=== PATIENT | female | born 2000 | race Caucasian/White ===

== ENCOUNTER 2020-09-13 09:20 | Emergency (ER) | payer BC ==
[~2020-09-13] VITALS: Ht 149.9 cm; Wt 52.2 kg
[2020-09-13 09:20] VITALS: BP 119/72
[2020-09-13] MEDS ORDERED: ERYTHROMYCIN E3.5 G2 OPHTHALMIC (10:03)
[2020-09-13] MEDS ORDERED: POLYMYXIN B/TMP10 ML OPHTHALMIC (10:03)
== END 2020-09-13 10:10 | disposition home or self-care (01) ==
LOC: ER 09:20
DX: S05.02XA Injury of conjunctiva and corneal abrasion without foreign body, left eye, initial encounter (principal); Y29.XXXA Contact with blunt object, undetermined intent, initial encounter; Y93.89 Activity, other specified; Y92.69 Other specified industrial and construction area as the place of occurrence of the external cause; Y99.8 Other external cause status